=== PATIENT | male | born 1955 | race Caucasian/White ===

== ENCOUNTER 2023-05-17 18:54 | Inpatient (IN) | payer MEDICARE, BC ==
[~2023-05-17] VITALS: Ht 170.2 cm; Wt 61.7 kg
[2023-05-17] MEDS ORDERED: ACET-868 PO (19:28)
[2023-05-17] MEDS ORDERED: ATOR10TA PO (19:28)
[2023-05-17] MEDS ORDERED: DOCU-141 PO (19:28)
[2023-05-17] MEDS ORDERED: THIA100T88 PO (19:28)
[2023-05-17] MEDS ORDERED: LISI40TA13 PO (19:28)
[2023-05-17] MEDS ORDERED: MAGN400O6 PO (19:28)
[2023-05-17] MEDS ORDERED: CYAN-51 PO (19:28)
[2023-05-17] MEDS ORDERED: NICO-762 TD (19:28)
[2023-05-17] MEDS ORDERED: METO25TA20 PO (19:28)
[2023-05-17] MEDS ORDERED: [UNRECOGNIZED DRUG - OTHER] TD (19:28)
[2023-05-17] MEDS ORDERED: ACAM333T8 PO (19:28)
[2023-05-17] MEDS ORDERED: ALLA266C2 TP (19:28)
[2023-05-17] MEDS ORDERED: DORZ10DR18 EACHEYE (19:28)
[2023-05-17] MEDS ORDERED: NA P133E RC (19:28)
[2023-05-17] MEDS ORDERED: CLON0.1T PO (19:28)
[2023-05-17] MEDS ORDERED: ASCO-352 PO (19:28)
[2023-05-17] MEDS ORDERED: CHLO25CA10 PO (19:28)
[2023-05-17] MEDS ORDERED: TYL2T PO (19:28)
[2023-05-17] MEDS ORDERED: CRAN425C6 PO (19:28)
[2023-05-17] MEDS ORDERED: MULT-447 PO (19:28)
[2023-05-17] MEDS ORDERED: FOLI0.4T6 PO (19:28)
[2023-05-17] MEDS ORDERED: ZINC50TA69 PO (19:28)
[2023-05-17] MEDS ORDERED: AMIN30LI2 PO (19:28)
[2023-05-17] MEDS ORDERED: BISA10SU11 RC (19:28)
[2023-05-17] MEDS ORDERED: DIVA500T2 PO (19:28)
[2023-05-17 19:39] LABS: BASOPHILS # (AUTO) 0.1 K/uL (0.0-0.2); BASOPHILS % (AUTO) 0.9 % (0.0-2.0); EOSINOPHILS % (AUTO) 0.2 % (0.0-6.0); HEMATOCRIT 38 % (39-51); HEMOGLOBIN 12.3 g/dL (13.5-17.5); LYMPHOCYTES % (AUTO) 9.4 % (20.0-44.0); MEAN CORPUSCULAR HEMOGLOBIN 30 PG (26.0-33.0); MEAN CORPUSCULAR HGB CONC 33 g/dl (31.0-36.0); MEAN CORPUSCULAR VOLUME 92 fL (80-96); MONOCYTES # (AUTO) 1.5 K/uL (0.1-1.30); MONOCYTES % (AUTO) 13.9 % (2.0-12.0); NEUTROPHILS # (AUTO) 8.3 K/uL (1.8-8.9); NEUTROPHILS % (AUTO) 75.6 % (43.0-81.0); PLATELET COUNT (AUTO) 399 K/uL (150-450); RED BLOOD CELL COUNT(AUTO) 4.14 MIL/uL (4.5-6.0); RED CELL DISTRIBUTION WIDTH 16.4 % (11.5-15.0)
[2023-05-17 19:55] LABS: ALANINE AMINOTRANSFERASE 16 U/L (12-78); ALBUMIN 2.5 g/dL (3.4-5.0); ALCOHOL, BLOOD < 3 mg/dL (0-10); ALKALINE PHOSPHATASE 72 U/L (46-116); ASPARTATE AMINOTRANSFERASE 17 U/L (15-37); BILIRUBIN,DIRECT 0.1 mg/dL (0.0-0.2); BILIRUBIN,TOTAL 0.4 mg/dL (0.2-1.0); CARBON DIOXIDE 24 mmol/L (21-32); CHLORIDE 104 mmol/L (98-107); CREATININE 0.9 mg/dL (0.6-1.3); GLUCOSE 139 mg/dL (74-106); INR 1.03 (0.91-1.10); PARTIAL THROMBOPLASTIN TIME 30.3 SEC (24.3-34.3); POTASSIUM 3.9 mmol/L (3.5-5.1); PROTHROMBIN TIME 10.9 SECS (9.2-11.1); SODIUM SERUM 141 mmol/L (136-145); TOTAL PROTEIN, SERUM 8.3 g/dL (6.4-8.2); UREA NITROGEN, BLOOD 25 mg/dL (7-18)
[2023-05-17 19:58] LABS: ACETAMINOPHEN <10 ug/ml (10-30); SALICYLATE 1.5 mg/dL (2.8-20.0)
[2023-05-17 20:04] LABS: LACTIC ACID 1.3 mmol/L (0.4-2.0)
[2023-05-17 20:05] LABS: SERUM AMMONIA 24 umol/L (11-32)
[2023-05-17 20:59] LABS: APPEARANCE,URINE CLEAR (CLEAR); BILIRUBIN,URINE NEGATIVE (NEGATIVE); BLOOD, URINE NEGATIVE Ery/uL (NEGATIVE); COLOR,URINE YELLOW (YELLOW); KETONES,URINE 1+ mg/dL (NEGATIVE); LEUKOCYTE ESTERASE ,URINE NEGATIVE (NEGATIVE); NITRITE, URINE NEGATIVE (NEGATIVE); PH,URINE 6.5 (5.0-8.0); PROTEIN,URINE NEGATIVE (NEGATIVE); UGLUCOSE NEGATIVE (NEGATIVE)
[2023-05-17 21:49] LABS: ADD URINE CULTURE NO; BACTERIA,URINE Rare /HPF (None Seen); RBC,URINE NONE SEEN /HPF (0-2); SQUAMOUS EPITHELIAL CELL,UR Rare /HPF (None Seen); WBC,URINE NONE SEEN /HPF (0-3)
[2023-05-17 21:50] LABS: URINE AMORPHOUS URATE Few /HPF (None Seen)
[2023-05-17] MEDS ORDERED: CEFTRIAXONE 1GM BAG (ER ONLY) 50 ML IV ONE (21:58)
[2023-05-17] MEDS ORDERED: CEFTRIAXONE 1 G in IV D5W 50 ML IV ONE (22:00)
[2023-05-17] MEDS ORDERED: IV NS 0.9% 1,000 ML BAG IV ONE (22:00)
[2023-05-17] MEDS ORDERED: CLONIDINE HCL 0.1 MG TABLET PO PRN (22:30)
[2023-05-17] MEDS ORDERED: HYDROCODONE/APAP 5/325MG TABLET PO PRN (22:30)
[2023-05-17] MEDS ORDERED: BISACODYL SUPP (10 MG) 10 MG/SUPP.RECT SUPP.RECT RC PRN (22:30)
[2023-05-17] MEDS ORDERED: ACETAMINOPHEN 325 MG TABLET PO PRN (22:30)
[2023-05-17] MEDS ORDERED: ONDANSETRON HCL/PF 4 MG/2 ML VIAL IVP PRN (22:30)
[2023-05-17] MEDS ORDERED: MAGNESIUM HYDROXIDE 30 ML UDC PO PRN (22:30)
[2023-05-17 22:45] VITALS: BP 134/95; TEMP 99.7; O2SAT 95
[2023-05-17 23:32] LABS: AMPHETAMINE, URINE NEGATIVE (NEGATIVE); BARBITURATE, URINE NEGATIVE (NEGATIVE); CANNABINOID, URINE NEGATIVE (NEGATIVE); COCCAINE, URINE NEGATIVE (NEGATIVE); OPIATE, URINE NEGATIVE (NEGATIVE); PHENCYCLIDINE SCREEN,URINE NEGATIVE (NEGATIVE)
[2023-05-17 23:37] LABS: BENZODIAZEPINE, URINE POSITIVE (NEGATIVE)
[2023-05-18] MEDS: IV D5/ 0.9% NACL 1,000 ML IV SCH ×2 (00:02→14:05)
[2023-05-18 02:40] VITALS: BP 134/95; TEMP 99.7; O2SAT 95
[2023-05-18 04:00] VITALS: BP 111/52; TEMP 99; O2SAT 95
[2023-05-18] MEDS: CHLORDIAZEPOXIDE HCL 25 MG CAPSULE PO SCH ×3 (04:51→21:00)
[2023-05-18 08:00] VITALS: BP 120/80; TEMP 99.1; O2SAT 95
[2023-05-18] MEDS: PANTOPRAZOLE 40 MG VIAL IV SCH (09:00)
[2023-05-18] MEDS: THIAMINE HCL 100 MG TABLET PO SCH (09:01)
[2023-05-18] MEDS: METOPROLOL TARTRATE 50 MG TABLET PO SCH ×2 (09:01→17:00)
[2023-05-18] MEDS: LISINOPRIL (20MG) 20 MG TABLET PO SCH (09:02)
[2023-05-18] MEDS: DOCUSATE SODIUM 100 MG CAPSULE PO SCH (09:02)
[2023-05-18] MEDS: ACETAMINOPHEN 325 MG TABLET PO SCH (09:02)
[2023-05-18] MEDS: FOLIC ACID 1 MG TABLET PO SCH (09:03)
[2023-05-18] MEDS: DIVALPROEX SODIUM 500 MG TABLET.DR PO SCH ×2 (09:03→21:00)
[2023-05-18] MEDS: DORZOLAMIDE OPTH 2% 10 ML BOTTLE EACHEYE SCH ×3 (09:09→17:17)
[2023-05-18 13:25] LABS: THYROID STIMULATING HORMONE 1.183 uIU/mL (0.358-3.74)
[2023-05-18 16:00] VITALS: BP 112/73; TEMP 99.1; O2SAT 96
[2023-05-18] MEDS: ASCORBIC ACID 500 MG TABLET PO SCH (17:17)
[2023-05-18] MEDS: BLOOD SUGAR DIAGNOSTIC 1 EACH STRIP IN SCH (17:28)
[2023-05-18 19:06] LABS: CHOLESTEROL 135 mg/dL (<200); HDL CHOLESTEROL 30 mg/dL (40-60); LDL 86 mg/dL (0-99); TRIGLYCERIDES 67 mg/dL (30-150)
[2023-05-18 20:00] VITALS: BP 146/90; TEMP 98.1; O2SAT 95
[2023-05-18] MEDS: ATORVASTATIN 10 MG TABLET PO SCH (22:00)
[2023-05-19] MEDS: BLOOD SUGAR DIAGNOSTIC 1 EACH STRIP IN SCH ×4 (00:41→17:05)
[2023-05-19] MEDS: IV D5/ 0.9% NACL 1,000 ML IV SCH ×2 (00:43→14:06)
[2023-05-19] MEDS: CHLORDIAZEPOXIDE HCL 25 MG CAPSULE PO SCH ×3 (05:00→21:04)
[2023-05-19 06:24] LABS: BASOPHILS % (AUTO) 0.4 % (0.0-2.0); EOSINOPHILS # (AUTO) 0.1 K/uL (0.0-0.7); EOSINOPHILS % (AUTO) 1.2 % (0.0-6.0); HEMATOCRIT 30 % (39-51); LYMPHOCYTES # (AUTO) 0.9 K/uL (0.8-4.8); LYMPHOCYTES % (AUTO) 13.2 % (20.0-44.0); MEAN CORPUSCULAR HEMOGLOBIN 30 PG (26.0-33.0); MEAN CORPUSCULAR HGB CONC 33 g/dl (31.0-36.0); MEAN CORPUSCULAR VOLUME 91 fL (80-96); MONOCYTES # (AUTO) 0.9 K/uL (0.1-1.30); MONOCYTES % (AUTO) 13.5 % (2.0-12.0); NEUTROPHILS % (AUTO) 71.7 % (43.0-81.0); PLATELET COUNT (AUTO) 280 K/uL (150-450); RED CELL DISTRIBUTION WIDTH 16.3 % (11.5-15.0); WHITE BLOOD COUNT (AUTO) 6.9 K/uL (4.3-11.0)
[2023-05-19 07:00] LABS: CALCIUM, SERUM 8.8 mg/dL (8.5-10.1); CREATININE 0.6 mg/dL (0.6-1.3); MAGNESIUM 1.7 mg/dL (1.8-2.4); POTASSIUM 3.5 mmol/L (3.5-5.1)
[2023-05-19 08:00] VITALS: BP 130/87; TEMP 98.6; O2SAT 98
[2023-05-19 08:07] LABS: FOLIC ACID > 20.0 ng/mL (>3.0)
[2023-05-19] MEDS: DORZOLAMIDE OPTH 2% 10 ML BOTTLE EACHEYE SCH ×3 (08:40→16:04)
[2023-05-19] MEDS: PANTOPRAZOLE 40 MG VIAL IV SCH (08:41)
[2023-05-19] MEDS: FOLIC ACID 1 MG TABLET PO SCH (08:49)
[2023-05-19] MEDS: DOCUSATE SODIUM 100 MG CAPSULE PO SCH (08:49)
[2023-05-19] MEDS: DIVALPROEX SODIUM 500 MG TABLET.DR PO SCH ×2 (08:49→21:04)
[2023-05-19] MEDS: METOPROLOL TARTRATE 50 MG TABLET PO SCH ×2 (08:49→17:05)
[2023-05-19] MEDS: THIAMINE HCL 100 MG TABLET PO SCH (08:50)
[2023-05-19] MEDS: LISINOPRIL (20MG) 20 MG TABLET PO SCH (08:50)
[2023-05-19] MEDS: ACETAMINOPHEN 325 MG TABLET PO SCH (08:50)
[2023-05-19] MEDS ORDERED: MAGNESIUM OXIDE 400 MG TABLET PO ONE (10:00)
[2023-05-19] MEDS ORDERED: Magnesium 1GM/D5W 100ML PREMIX 100 ML IV SCH (10:00)
[2023-05-19] MEDS: PROSOURCE / PROSTAT (PYXIS) 30 ML UDC PO SCH ×2 (13:38→17:05)
[2023-05-19 16:00] VITALS: BP 132/88; TEMP 99.1; O2SAT 95
[2023-05-19] MEDS: ASCORBIC ACID 500 MG TABLET PO SCH (17:04)
[2023-05-19 20:00] VITALS: BP 126/86; TEMP 98.6; O2SAT 96
[2023-05-19] MEDS: ATORVASTATIN 10 MG TABLET PO SCH (21:04)
[2023-05-20] MEDS: BLOOD SUGAR DIAGNOSTIC 1 EACH STRIP IN SCH ×4 (00:54→17:47)
[2023-05-20] MEDS: IV D5/ 0.9% NACL 1,000 ML IV SCH (01:15)
[2023-05-20] MEDS: CHLORDIAZEPOXIDE HCL 25 MG CAPSULE PO SCH ×3 (05:52→21:11)
[2023-05-20 08:00] VITALS: BP_SYST 128; BP_SYST 143; BP_DIAS 74; BP_DIAS 87; TEMP 97.5; TEMP 99.3; O2SAT 97; O2SAT 98
[2023-05-20] MEDS: THIAMINE HCL 100 MG TABLET PO SCH (08:50)
[2023-05-20] MEDS: FOLIC ACID 1 MG TABLET PO SCH (08:50)
[2023-05-20] MEDS: DIVALPROEX SODIUM 500 MG TABLET.DR PO SCH ×2 (08:50→21:11)
[2023-05-20] MEDS: DORZOLAMIDE OPTH 2% 10 ML BOTTLE EACHEYE SCH ×3 (08:50→17:46)
[2023-05-20] MEDS: DOCUSATE SODIUM 100 MG CAPSULE PO SCH (08:50)
[2023-05-20] MEDS: PANTOPRAZOLE 40 MG TABLET.DR PO SCH (08:50)
[2023-05-20] MEDS: ACETAMINOPHEN 325 MG TABLET PO SCH (08:51)
[2023-05-20] MEDS: METOPROLOL TARTRATE 50 MG TABLET PO SCH ×2 (08:52→17:47)
[2023-05-20] MEDS: PROSOURCE / PROSTAT (PYXIS) 30 ML UDC PO SCH ×3 (08:52→17:46)
[2023-05-20] MEDS: LISINOPRIL (20MG) 20 MG TABLET PO SCH (08:52)
[2023-05-20] MEDS: IV D5/ 0.9% NACL 1,000 ML IV PRN (14:30)
[2023-05-20 16:00] VITALS: BP 129/100; TEMP 97.3; O2SAT 96
[2023-05-20] MEDS: ASCORBIC ACID 500 MG TABLET PO SCH (17:46)
[2023-05-20 20:00] VITALS: BP 129/84; TEMP 97.9; O2SAT 95
[2023-05-20] MEDS: ATORVASTATIN 10 MG TABLET PO SCH (21:11)
[2023-05-21] MEDS: BLOOD SUGAR DIAGNOSTIC 1 EACH STRIP IN SCH ×3 (01:37→12:20)
[2023-05-21] MEDS: IV D5/ 0.9% NACL 1,000 ML IV PRN (02:18)
[2023-05-21] MEDS: CHLORDIAZEPOXIDE HCL 25 MG CAPSULE PO SCH ×2 (04:44→12:21)
[2023-05-21 07:30] VITALS: BP 154/101; TEMP 98.6; O2SAT 96
[2023-05-21] MEDS: THIAMINE HCL 100 MG TABLET PO SCH ×2 (09:00→09:27)
[2023-05-21] MEDS: DOCUSATE SODIUM 100 MG CAPSULE PO SCH ×2 (09:00→09:27)
[2023-05-21] MEDS: PROSOURCE / PROSTAT (PYXIS) 30 ML UDC PO SCH ×3 (09:00→12:21)
[2023-05-21] MEDS: PANTOPRAZOLE 40 MG TABLET.DR PO SCH ×2 (09:00→09:27)
[2023-05-21] MEDS: ACETAMINOPHEN 325 MG TABLET PO SCH ×2 (09:00→09:27)
[2023-05-21] MEDS: FOLIC ACID 1 MG TABLET PO SCH ×2 (09:00→09:27)
[2023-05-21] MEDS: DORZOLAMIDE OPTH 2% 10 ML BOTTLE EACHEYE SCH ×2 (09:27→12:21)
[2023-05-21] MEDS: DIVALPROEX SODIUM 500 MG TABLET.DR PO SCH (09:27)
[2023-05-21 09:28] VITALS: BP 154/101
[2023-05-21] MEDS: METOPROLOL TARTRATE 50 MG TABLET PO SCH (09:28)
[2023-05-21] MEDS: LISINOPRIL (20MG) 20 MG TABLET PO SCH (09:28)
[2023-05-23 11:07] LABS: METHYLMALONIC ACID 157 nmol/L (0-378)
== END 2023-05-21 14:40 | DRG 640 ==
LOC: ER 18:56 → MED 21:41
PROVIDERS: ADMIT Legal Medicine
DX: E51.2 Wernicke's encephalopathy (principal); G92.8 Other toxic encephalopathy; F03.93 Unspecified dementia, unspecified severity, with mood disturbance; F31.9 Bipolar disorder, unspecified; E78.5 Hyperlipidemia, unspecified; I10 Essential (primary) hypertension; Z79.899 Other long term (current) drug therapy; L89.156 Pressure-induced deep tissue damage of sacral region; F41.9 Anxiety disorder, unspecified; F10.21 Alcohol dependence, in remission
CPT/HCPCS: 36415; 70450-TC; 70551-TC; 71045-TC; 80048-TC; 80061-TC; 80076-TC; 81001; 82140-TC; 82607-TC; 82962-TC; 83605-TC; 83735-TC; 83921; 84425; 84439-TC; 84443-TC; 84484-TC; 85025-TC; 85730-TC; 87040-TC; 92526; 92611-TC; 97112-TC; 97530-TC; A4223; C9113; G0378; G0480; J0696; J7030; J7042; J7060